=== PATIENT | male | born 1990 | race Caucasian/White ===

== ENCOUNTER → 2020-01-07 06:00 | Outpatient (CLI) | payer OTHER | END | disposition home or self-care (01) | LOC: LAB 06:00 → ADM 07:45 → EDSTATUS 01-13 07:45 → CIR.AMB 01-13 07:45 → ADM 01-13 07:45 → CIR.AMB 01-13 08:30 | DX: K42.9 Umbilical hernia without obstruction or gangrene (principal); Z01.818 Encounter for other preprocedural examination ==